=== PATIENT | female | born 1975 | race Caucasian/White ===

== ENCOUNTER 2021-05-16 06:25 | Day surgery (SDC) | payer OTHER ==
[2021-05-12 09:36] VITALS: BMI 25.0
[2021-05-16] MEDS ORDERED: BUPIVACAINE HCL/PF 0.25% (2.5MG/ML) 10 ML VIAL ONE (07:14)
[2021-05-16] MEDS ORDERED: EPINEPHrine 1:1,000 1,000 MCG/ML ML ONE (07:14)
[2021-05-16] MEDS ORDERED: LIDOCAINE HCL 2% JELLY (5 ML/TUBE) ONE (07:23)
[2021-05-16] MEDS ORDERED: DEXAMETHASONE SOD PHOSPHATE 4 MG/1 ML VIAL ONE (07:23)
[2021-05-16] MEDS ORDERED: ceFAZolin SODIUM 1 GM VIAL ONE (07:23)
[2021-05-16] MEDS ORDERED: LIDOCAINE HCL 2% 100 MG/5 ML DISP.SYRIN ONE (07:23)
[2021-05-16] MEDS ORDERED: ONDANSETRON 4 MG/2 ML VIAL ONE (07:23)
[2021-05-16] MEDS ORDERED: KETOROLAC TROMETHAMINE 30 MG/1 ML VIAL ONE (07:23)
[2021-05-16] MEDS ORDERED: MIDAZOLAM HCL 2 MG/2 ML SINGLE DOSE VIAL ONE (07:24)
[2021-05-16] MEDS ORDERED: PROPOFOL 20 ML ONE ×2 (07:24)
[2021-05-16] MEDS ORDERED: SUCCINYLCHOLINE CHLORIDE 200 MG/10 ML SYRINGE ONE (07:24)
[2021-05-16] MEDS ORDERED: SEVOFLURANE 250 ML BTL ONE (07:27)
[2021-05-16] MEDS ORDERED: HYDROmorphone HCL/PF 1 MG/ML VIAL ONE (08:05)
[2021-05-16] MEDS ORDERED: BUPIVACAINE HCL/EPINEPHRINE/PF 30 ML VIAL IJ ONE (08:10)
[2021-05-16] MEDS ORDERED: BUPIVACAINE HCL/PF 0.25% (2.5MG/ML) 10 ML VIAL IJ ONE (08:25)
[2021-05-16] MEDS ORDERED: ONDANSETRON 4 MG/2 ML VIAL IVPUSH PRN (08:43)
[2021-05-16] MEDS ORDERED: oxyCODONE HCL 5 MG TABLET PO PRN ×2 (08:43)
[2021-05-16] MEDS ORDERED: PROMETHAZINE HCL 25 MG/1 ML VIAL IVPUSH PRN (08:43)
[2021-05-16 09:32] VITALS: TEMP 97.3
[2021-05-16 10:27] VITALS: BP 102/57; PULSE 53
== END 2021-05-16 10:45 | disposition home or self-care (01) ==
LOC: FASU 06:25
PROVIDERS: ATTEND Orthopaedic Surgery Sports Medicine
PROC: 0SBD4ZZ Excision of Left Knee Joint, Percutaneous Endoscopic Approach (ICD-10-PCS; principal; 2021-05-16 08:01)
DX: S83.212A Bucket-handle tear of medial meniscus, current injury, left knee, initial encounter (principal); M94.262 Chondromalacia, left knee; M65.862 Other synovitis and tenosynovitis, left lower leg; X58.XXXA Exposure to other specified factors, initial encounter; Y93.9 Activity, unspecified; Y92.9 Unspecified place or not applicable
CPT/HCPCS: 81025; 94760

== ENCOUNTER 2021-10-24 06:11 | Day surgery (SDC) | payer OTHER ==
[2021-10-21 17:58] VITALS: BMI 25.2
[2021-10-24] MEDS ORDERED: BUPIVACAINE HCL/PF 0.25% (2.5MG/ML) 10 ML VIAL ONE (07:02)
[2021-10-24] MEDS ORDERED: BUPIVACAINE HCL 100 ML ONE (07:02)
[2021-10-24] MEDS ORDERED: PROPOFOL 20 ML ONE (07:21)
[2021-10-24] MEDS ORDERED: MIDAZOLAM HCL 2 MG/2 ML SINGLE DOSE VIAL ONE (07:21)
[2021-10-24] MEDS ORDERED: LIDOCAINE HCL/PF 2% SDV 5ML VIAL ONE (07:22)
[2021-10-24] MEDS ORDERED: ceFAZolin SODIUM 1 GM VIAL ONE (07:22)
[2021-10-24] MEDS ORDERED: SODIUM CHLORIDE 0.9% P/F 10 ML VIAL IJ ONE (07:22)
[2021-10-24] MEDS ORDERED: GLYCOPYRROLATE 0.2 MG/1 ML VIAL ONE (07:22)
[2021-10-24] MEDS ORDERED: DEXAMETHASONE SOD PHOSPHATE 4 MG/1 ML VIAL ONE (07:28)
[2021-10-24] MEDS ORDERED: ONDANSETRON 4 MG/2 ML VIAL ONE (07:28)
[2021-10-24] MEDS ORDERED: ACETAMINOPHEN INJECTION 100 ML IVPB ONE (08:01)
[2021-10-24] MEDS ORDERED: KETOROLAC TROMETHAMINE 30 MG/1 ML VIAL ONE (08:22)
[2021-10-24] MEDS ORDERED: oxyCODONE HCL 5 MG TABLET PO PRN ×2 (08:45→09:52)
[2021-10-24] MEDS ORDERED: ONDANSETRON 4 MG/2 ML VIAL IVPUSH PRN (08:45)
[2021-10-24] MEDS ORDERED: LACTATED RINGERS SOLUTION 1,000 ML IV SCH (08:45)
[2021-10-24] MEDS ORDERED: PROMETHAZINE HCL 25 MG/1 ML VIAL IVPUSH PRN (08:45)
[2021-10-24] MEDS ORDERED: FENTANYL CITRATE/PF 50 MCG/ML VIAL ONE (08:59)
[2021-10-24] MEDS ORDERED: oxyCODONE HCL 5 MG TABLET ONE (10:03)
[2021-10-24 10:21] VITALS: TEMP 97.5
[2021-10-28 12:47] VITALS: BP 107/53; PULSE 61; RESP 18
== END 2021-10-24 10:49 | disposition home or self-care (01) ==
LOC: FASU 06:11
PROVIDERS: ATTEND Orthopaedic Surgery Sports Medicine
PROC: 0SBC4ZZ Excision of Right Knee Joint, Percutaneous Endoscopic Approach (ICD-10-PCS; principal; 2021-10-24 07:57)
PROC: 0SBC4ZZ Excision of Right Knee Joint, Percutaneous Endoscopic Approach (ICD-10-PCS; 2021-10-24 07:57)
DX: S83.241A Other tear of medial meniscus, current injury, right knee, initial encounter (principal); S83.281A Other tear of lateral meniscus, current injury, right knee, initial encounter; M94.261 Chondromalacia, right knee; M65.9 Synovitis and tenosynovitis, unspecified; X58.XXXA Exposure to other specified factors, initial encounter; Y93.9 Activity, unspecified; Y92.9 Unspecified place or not applicable
CPT/HCPCS: 81025; 94760; 97116-GP

== ENCOUNTER 2022-02-26 14:49 | Observation (INO) | payer OTHER ==
[2022-02-26 15:20] VITALS: RESP 18; BMI 25.4
[2022-02-26] MEDS ORDERED: ACETAMINOPHEN INJECTION 100 ML IVPB ONE (17:19)
[2022-02-26] MEDS ORDERED: ACETAMINOPHEN 1000 MG/100 ML BAG IVPB ONE (17:21)
[2022-02-26] MEDS ORDERED: LACTATED RINGERS SOLUTION 1000 ML INFUS.BAG IV ONE (17:21)
[2022-02-26 18:12] LABS: BASO % 1.3 % (0-2.0); EOS % 0.8 % (0-4.5); HEMATOCRIT 41.9 % (32.4-45.2); HEMOGLOBIN 13.9 GM/dL (10.7-15.3); LYMPH % 15.7 % (8-40); MCH 31.6 pg (25.7-33.7); MCHC 33.1 g/dl (32.0-36.0); MEAN CELL VOLUME 95.4 fl (80-96); MEAN PLT VOLUME 8.1 fl (7.5-11.1); NEUT % 77.2 % (42.8-82.8); PLATELET COUNT 276 10^3/uL (134-434); RBC 4.39 M/mm3 (3.60-5.2); RDW 13.2 % (11.6-15.6); WHITE BLOOD COUNT 13.6 K/mm3 (4.0-10.0)
[2022-02-26 18:30] LABS: ACTIVATED PTT 30.2 SECONDS (25.2-36.5); INR 1.49 (0.83-1.09); PROTHROMBIN TIME (PATIENT) 17.2 SEC (9.7-13.0)
[2022-02-26 18:39] LABS: CHLORIDE 103 mmol/L (98-107); SODIUM 138 mmol/L (136-145)
[2022-02-26 18:41] LABS: ALBUMIN 3.3 g/dl (3.4-5.0); CALCIUM 8.9 mg/dL (8.5-10.1); LIPASE 149 U/L (73-393)
[2022-02-26 18:42] LABS: ANION GAP 6 MMOL/L (8-16); BLOOD UREA NITROGEN 17.4 mg/dL (7-18); CO2 28 mmol/L (21-32); GLUCOSE,RANDOM 78 mg/dL (74-106)
[2022-02-26 18:44] LABS: CREATININE 0.7 mg/dL (0.55-1.3)
[2022-02-26 18:45] LABS: SGOT/AST 11 U/L (15-37); SGPT/ALT 24 U/L (13-61)
[2022-02-26 18:46] LABS: BILIRUBIN,TOTAL 0.6 mg/dL (0.2-1); TOT PROT 7.2 g/dl (6.4-8.2)
[2022-02-26 18:47] LABS: ALK PHOS 75 U/L (45-117)
[2022-02-27] MEDS ORDERED: SODIUM CHLORIDE 1,000 ML IV SCH (04:15)
[2022-02-27] MEDS ORDERED: ACETAMINOPHEN 1000 MG/100 ML BAG IVPB ONE (05:48)
[2022-02-27] MEDS ORDERED: ALBUTEROL SO4 HFA INHALER IH PRN (05:49)
[2022-02-27 09:19] LABS: BASO % 0.6 % (0-2.0); EOS % 1.6 % (0-4.5); HEMATOCRIT 35.9 % (32.4-45.2); HEMOGLOBIN 12.3 GM/dL (10.7-15.3); LYMPH % 14.4 % (8-40); MCH 32.6 pg (25.7-33.7); MCHC 34.1 g/dl (32.0-36.0); MEAN CELL VOLUME 95.4 fl (80-96); MEAN PLT VOLUME 8.4 fl (7.5-11.1); MONO % 5.4 % (3.8-10.2); PLATELET COUNT 230 10^3/uL (134-434); RBC 3.76 M/mm3 (3.60-5.2); RDW 13.3 % (11.6-15.6); WHITE BLOOD COUNT 9.6 K/mm3 (4.0-10.0)
[2022-02-27 09:47] LABS: CALCIUM 7.9 mg/dL (8.5-10.1)
[2022-02-27 09:48] LABS: ALBUMIN 2.8 g/dl (3.4-5.0); BLOOD UREA NITROGEN 16.7 mg/dL (7-18); MAGNESIUM 2.2 mg/dL (1.8-2.4)
[2022-02-27 09:49] LABS: PHOSPHOROUS 2.2 mg/dL (2.5-4.9)
[2022-02-27 09:50] LABS: CREATININE 0.6 mg/dL (0.55-1.3)
[2022-02-27 09:52] LABS: BILIRUBIN,TOTAL 0.2 mg/dL (0.2-1)
[2022-02-27] MEDS ORDERED: ENOXAPARIN NA (PORCINE) 40 MG/0.4 ML DISP.SYRIN SQ SCH (10:00)
[2022-02-27] MEDS ORDERED: FAMOTIDINE 20 MG/50 ML IVPB 20 MG/50 ML MG IVPB SCH (10:00)
[2022-02-27] MEDS ORDERED: AMPICILLIN NA/SULBACTAM NA 1.5 GM in SODIUM CHLORIDE 100 ML IVPB SCH ×2 (10:00→13:00)
[2022-02-27] MEDS ORDERED: FAMOTIDINE 20 MG/50 ML IVPB 20 MG/50 ML MG IVPB ONE (12:34)
[2022-02-27] MEDS ORDERED: ENOXAPARIN NA (PORCINE) 40 MG/0.4 ML DISP.SYRIN SQ ONE (12:34)
[2022-02-27 13:20] VITALS: BP 99/58; PULSE 82; TEMP 98.3
[2022-02-27] MEDS ORDERED: MONTELUKAST NA 10 MG TABLET PO SCH (22:00)
== END 2022-02-27 17:09 | disposition home or self-care (01) ==
LOC: JER 14:49 → UNDOADMOB 02-27 01:40 → INTOOBSV 02-27 01:40 → JERBED 02-27 01:40
PROVIDERS: ADMIT Internal Medicine; ATTEND Internal Medicine
PROC: 3E033NZ Introduction of Analgesics, Hypnotics, Sedatives into Peripheral Vein, Percutaneous Approach (ICD-10-PCS; principal; 2022-02-27)
PROC: 3E033GC Introduction of Other Therapeutic Substance into Peripheral Vein, Percutaneous Approach (ICD-10-PCS; 2022-02-27)
PROC: 3E0337Z Introduction of Electrolytic and Water Balance Substance into Peripheral Vein, Percutaneous Approach (ICD-10-PCS; 2022-02-27)
DX: R10.11 Right upper quadrant pain (principal); J45.909 Unspecified asthma, uncomplicated; Z82.49 Family history of ischemic heart disease and other diseases of the circulatory system
CPT/HCPCS: 0241U-QW; 36415; 74177-TC; 76705-TC; 78226-TC; 80053; 83690; 83735; 84100; 84702; 85025; 85610; 85730; 86850; 86900; 86901; 96361; 96365; 96374; 96375; 99285-25; A9537; G0378; Q9967

== ENCOUNTER 2022-03-31 05:03 | Day surgery (SDC) | payer OTHER ==
[2022-03-20 09:58] VITALS: BMI 25.4
[2022-03-31 13:55] VITALS: BP 97/55; PULSE 51; RESP 18
[2022-03-31 15:40] VITALS: TEMP 97.5
== END 2022-03-31 13:20 | disposition home or self-care (01) ==
LOC: JASU-ENDO 05:03
PROVIDERS: ATTEND Student in an Organized Health Care Education/Training Program
PROC: 0DB78ZX Excision of Stomach, Pylorus, Via Natural or Artificial Opening Endoscopic, Diagnostic (ICD-10-PCS; 2022-03-31)
PROC: 0DB68ZX Excision of Stomach, Via Natural or Artificial Opening Endoscopic, Diagnostic (ICD-10-PCS; 2022-03-31)
PROC: 0DB98ZX Excision of Duodenum, Via Natural or Artificial Opening Endoscopic, Diagnostic (ICD-10-PCS; principal; 2022-03-31 12:00)
DX: K29.50 Unspecified chronic gastritis without bleeding (principal)
CPT/HCPCS: 81025; 88305-TC; 88342-TC